=== PATIENT | female | born 1970 | race Two or more races ===

== ENCOUNTER 2018-05-10 00:27 | Emergency (ER) | payer SELFPAY ==
[~2018-05-10] VITALS: Ht 149.9 cm; Wt 59.0 kg
[2018-05-10] MEDS ORDERED: BP MEDS (00:36)
[2018-05-10] MEDS ORDERED: THYROID MED PO (00:36)
[2018-05-10 00:41] VITALS: BP 160/79
[2018-05-10] MEDS ORDERED: Norco 5mg/325mg tab ORAL ONE (01:00)
--- NOTE | 2018-05-10 01:02 | Emergency Room Report ---
History of Present Illness General Chief Complaint: Upper Extremity Injury Source: Patient Present Illness HPI Is a 47-year-old female who is right-hand dominant. She presents with chief complaint of right shoulder pain. Onset was 3 days ago. This occurred after she was playing pool. She went to shoot a pool ball and she felt pain into shoulder area. Since then there is swelling to the area. This pain going down her fingers and it felt numb. No other trauma. Worse with certain movement. Pain is 8 out of 10. She tried [id number] medication without much relief. Allergies: Coded Allergies: No Known Allergies (Unverified , 05/10/18) Patient History Past Medical History: see triage record, old chart reviewed Past Surgical History: none Pertinent Family History: none Social History: Denies: smoking Last Menstrual Period: march Now: No Immunizations: other Reviewed Nursing Documentation: PMH: Agreed; PSxH: Agreed Nursing Documentation-PMH Hx Hypertension: Yes Review of Systems Eye: Denies: eye pain, blurred vision ENT: Denies: ear pain, nose congestion, throat swelling Respiratory: Denies: cough, shortness of breath Cardiovascular: Denies: chest pain, palpitations Gastrointestinal: Denies: abdominal pain, diarrhea, nausea, vomiting Musculoskeletal: Reports: joint pain; Denies: back pain Skin: Denies: rash Neurological: Denies: headache, numbness Endocrine: Denies: increased thirst, increased urine Hematologic/Lymphatic: Denies: easy bruising All Other Systems: negative except mentioned in HPI Physical Exam Vital Signs Date Time Temp Pulse Resp B/P (MAP) Pulse Ox O2 Delivery O2 Flow Rate FiO2 05/10/18 00:30 98.1 108 18 160/79 98 Room Air 98.1 vitals with high blood pressure Sp02 EP Interpretation: reviewed, normal General Appearance: well appearing, no apparent distress, alert Head: normocephalic, atraumatic Eyes: bilateral eye PERRL, bilateral eye EOMI ENT: hearing grossly normal, normal pharynx Neck: full range of motion, supple, no meningismus Respiratory: chest non-tender, lungs clear, normal breath sounds Cardiovascular #1: regular rate, rhythm, no murmur Gastrointestinal: normal bowel sounds, non tender, no mass, no organomegaly, no bruit, non-distended Musculoskeletal: back normal, gait/station normal, tender - Rt shoulder: diffuse shoulder tenderness. unable to abduct shoulder. no redness or warmth. Psychiatric: mood/affect normal Skin: warm/dry Procedures Splinting Splinting : Consent: Verbal Location: rt shoulder Pre-Made Type: sling Pre-Proc Neuro Vasc Exam: normal Post-Proc Neuro Vasc Exam: normal Patient Tolerated: Well Complications: None Medical Decision Making Diagnostic Impression: Primary Impression: Calcific bursitis of shoulder ER Course Patient with right shoulder pain. Most likely a rotator cuff tendinitis versus impingement. No evidence of fracture dislocation. No evidence of septic joint. We'll discharge home. Other X-Ray Diagnostic Results Other X-Ray Diagnostic Results : X-Ray ordered: rt shoulder xrays # of Views/Limited Vs Complete: 3 View Indication: Pain EP Interpretation: Yes Interpretation: no dislocation, no soft tissue swelling, no fractures, other - calcific tendonitis Impression: No acute disease Electronically Signed by: Ankit Cueva MD Last Vital Signs Date Time Temp Pulse Resp B/P (MAP) Pulse Ox O2 Delivery O2 Flow Rate FiO2 05/10/18 00:41 98.1 108 18 160/79 98 Room Air 98.1 Status: improved Disposition: HOME, SELF-CARE Condition: Stable Scripts Prednisone* (PREDNISONE*) 20 Mg Tablet 60 MG ORAL DAILY, #15 TAB Prov: ANKIT CUEVA M.D. 05/10/18 Hydrocodone/Acetaminophen 5-325* (HYDROCODONE/ACETAMINOPHEN 5-325*) 1 Each Tablet 1 TAB ORAL Q6H PRN for For Pain, #15 TAB 0 Refills Prov: ANKIT CUEVA M.D. 05/10/18 Ibuprofen* (MOTRIN*) 600 Mg Tablet 600 MG ORAL THREE TIMES A DAY, #30 TAB 0 Refills Prov: ANKIT CUEVA M.D. 05/10/18 Additional Instructions: Follow-up with your doctor in 7 days. Ice pack to the area. You may benefit from an MRI if not better. Return if worse. ANKIT CUEVA M.D. May 10, 2018 01:02
[2018-05-10] MEDS ORDERED: IBUPROFEN600 MG ORAL (01:08)
[2018-05-10] MEDS ORDERED: HYDROCODON-ACE1 EA15 ORAL ×2 (01:08→13:55)
[2018-05-10] MEDS ORDERED: PREDNISONE20 MG ORAL (01:08)
[2018-05-10 01:18] VITALS: BP 0/0
--- NOTE | 2018-05-11 15:20 | Diagnostic Imaging Report ---
Indication: Right shoulder pain Findings: 3 views of the right shoulder were obtained. No acute fracture or malalignment identified. There is extensive callus patient of the rotator cuff in the area adjacent to the greater tuberosity. IMPRESSION: No acute injury. Calcific tendinopathy of the rotator cuff
== END 2018-05-10 01:20 | disposition home or self-care (01) ==
LOC: EMR 00:38
DX: M75.51 Bursitis of right shoulder (principal); I10 Essential (primary) hypertension
CPT/HCPCS: 99284